=== PATIENT | female | born 1945 | race Two or more races ===

== ENCOUNTER 2017-11-13 11:11 | Outpatient (CLI) | payer OTHER | END 2017-11-13 11:22 | disposition home or self-care (01) | LOC: MAMO-SONO 11:11 | DX: Z12.31 Encounter for screening mammogram for malignant neoplasm of breast (principal); Z87.898 Personal history of other specified conditions; M54.2 Cervicalgia; M54.6 Pain in thoracic spine ==

== ENCOUNTER 2017-11-13 13:58 | Outpatient (CLI) | payer OTHER | END 2017-11-13 14:23 | disposition home or self-care (01) | LOC: NUCLEAR 13:58 | DX: M81.0 Age-related osteoporosis without current pathological fracture (principal) ==

== ENCOUNTER 2020-04-10 08:10 | Outpatient (CLI) | payer OTHER | END 2020-04-10 08:14 | disposition home or self-care (01) | LOC: RX STUDY 08:10 | PROVIDERS: ATTEND Internal Medicine Gastroenterology | DX: R10.13 Epigastric pain (principal) ==

== ENCOUNTER 2020-04-24 11:28 | Outpatient (CLI) | payer OTHER | END 2020-04-24 11:37 | disposition home or self-care (01) | LOC: MAMO-SONO 11:28 | PROVIDERS: ATTEND General Practice | DX: N64.59 Other signs and symptoms in breast (principal); Z12.31 Encounter for screening mammogram for malignant neoplasm of breast ==

== ENCOUNTER 2020-07-12 22:04 | Emergency (ER) | payer OTHER ==
[~2020-07-12] VITALS: Ht 210.8 cm; Wt 44.9 kg
[2020-07-12] MEDS ORDERED: PROZAC10 MG PO (22:20)
== END 2020-07-13 00:29 | disposition home or self-care (01) ==
LOC: ER 22:04
DX: S01.122A Laceration with foreign body of left eyelid and periocular area, initial encounter (principal); S50.02XA Contusion of left elbow, initial encounter; S40.012A Contusion of left shoulder, initial encounter; S60.012A Contusion of left thumb without damage to nail, initial encounter; W18.09XA Striking against other object with subsequent fall, initial encounter; Y93.K1 Activity, walking an animal; Y92.018 Other place in single-family (private) house as the place of occurrence of the external cause; Y99.8 Other external cause status

== ENCOUNTER 2020-07-13 04:58 | Emergency (ER) | payer OTHER ==
[~2020-07-13] VITALS: Ht 157.5 cm; Wt 44.0 kg
[~2020-07-13 04:58] MED LIST: PROZAC10 MG PO
== END 2020-07-14 04:24 | disposition designated cancer center or children's hospital (05) ==
LOC: ER 04:58
DX: S00.83XA Contusion of other part of head, initial encounter (principal); S00.12XA Contusion of left eyelid and periocular area, initial encounter; S30.1XXA Contusion of abdominal wall, initial encounter; S40.022A Contusion of left upper arm, initial encounter; R41.82 Altered mental status, unspecified; R11.2 Nausea with vomiting, unspecified; R44.2 Other hallucinations; F41.8 Other specified anxiety disorders; W17.89XA Other fall from one level to another, initial encounter; Y93.89 Activity, other specified; Y92.89 Other specified places as the place of occurrence of the external cause; Y99.8 Other external cause status; Z03.818 Encounter for observation for suspected exposure to other biological agents ruled out
CPT/HCPCS: 70544; 70551

== ENCOUNTER 2022-09-24 09:34 | Outpatient (CLI) | payer OTHER | END 2022-09-24 09:42 | disposition home or self-care (01) | LOC: RAD 09:34 | PROVIDERS: ATTEND Family Medicine | DX: R06.09 Other forms of dyspnea (principal) ==

== ENCOUNTER 2024-10-28 15:16 | Outpatient (CLI) | payer OTHER | END 2024-10-28 15:22 | disposition home or self-care (01) | LOC: RAD 15:16 | PROVIDERS: ATTEND Internal Medicine Rheumatology | DX: M15.0 Primary generalized (osteo)arthritis (principal); M65.871 Other synovitis and tenosynovitis, right ankle and foot; M65.872 Other synovitis and tenosynovitis, left ankle and foot; M05.29 Rheumatoid vasculitis with rheumatoid arthritis of multiple sites ==